=== PATIENT | female | born 1980 | race Caucasian/White ===

== ENCOUNTER 2023-06-26 10:44 | Emergency (ER) | payer OTHER, SELFPAY ==
[2023-06-26 10:46] VITALS: BP 125/81
--- NOTE | 2023-06-26 11:21 | ED.GENMED ---
History of Present Illness
General
Chief Complaint: Flank Pain
Source: patient
Exam Limitations: none
Time Seen by Provider: 06/26/23 10:56
Nursing documentation reviewed up to this point in time: agreed with
Travel History
Have you had any contact with someone who has COVID-19?: No
Do you have any symptoms of coronavirus? Fever > 100 degrees, chills, cough, shortness of breath, sore throat, loss of taste or smell, muscle aches, or headache?: No
History of Present Illness
History of Present Illness:
Patient is a 43 female who presents to the ER complaining of right flank pain which radiates to her right abdomen. Patient started with symptoms several days ago. She does have chronic back pain but this feels slightly different. She denies any
associated nausea with the. She initially reports it was worse with movement and changing positions and now she does notice it also worse with coughing sneezing she denies any shortness of breath pain is not made worse with deep breath. She is not
on control does not smoke no prior history of PE DVT. She does however feel the pain at rest. She denies any fever chills. She has not taken anything for symptoms today.
Past History
Past History
ED Past Medical History: None and Other
ED Past Surgical History: None
Social History
Tobacco: Non-smoker
Alcohol: None
Living: with family
Family History
Family History: CAD
Review of Systems
Review of Systems
Allergies reviewed?: Yes
All Other Systems: ROS reviewed and negative except as documented in HPI and ROS
Constitutional: Reports no symptoms; Denies fever, fatigue or chills
Cardiac: Reports no symptoms
ABD/GI: Reports abdominal pain; Denies nausea, vomiting or diarrhea
: Reports flank pain
Musculoskeletal: Reports back pain (pain across back but mostly right sided)
Skin: Reports no symptoms
Neurological: Reports no symptoms
Psychiatric: Reports no symptoms
Phy Exam
General Physical Exam
General Presentation: no apparent distress
General age: appears stated age
General Skin: warm and dry
General Habitus: normal
General Mental: alert
General Hydration: appears well hydrated
Gastrointestinal Exam
Gastrointestinal Exam: non tender and soft
Neurological Exam
Neurological Exam: alert and oriented x3
Musculoskeletal Exam
Musculoskeletal Exam: full ROM
Skin Exam
Skin Exam: normal color and warm/dry
Psychiatric Exam
Psychiatric Exam: normal mood/affect
Course
Orders/Labs/Results
Orders:
Orders
06/26/23 11:13
Complete Blood Count/With Diff Urgent
Comprehensive Metabolic Panel Urgent
HCG, Serum Qualitative Screen Urgent
Lipase Stat
Urinalysis Reflex To Culture Urgent
Date Specimen was Collected: 06/26/23
Time Specimen was Collected: 11:12
06/26/23 11:30
Ketorolac [Toradol] 15 mg IV NOW STA
06/26/23 11:31
CT Abd/pel Without Iv Or Oral Urgent
Comment:
Reason For Exam: right flank pain
0.9% Sodium Chloride 1000 ml [Nss] 1,000 ml IV BOLUS
06/26/23 11:36
Add On- LAB Urgent
Tests Added?: hcg qualitative
06/26/23 12:06
Add On- LAB Urgent
Tests Added?: add on hcg qualitative
06/26/23 13:20
US Abdomen Complete/Upper Urgent
Comment:
Reason For Exam: upper quad pain
Abnormal Lab Results
06/26/23
11:13
RBC 4.12 L 10^6/uL
(4.20-5.40)
MCHC 32.4 L g/dL
(33.0-37.0)
Monocytes % 10.0 H %
(1.7-9.3)
Sodium 134 L mmol/L
(135-145)
Lipase 384 H U/L
(23-300)
06/26/23 11:13
06/26/23 11:13
Vital Signs
Initial and Last Documented VS:
Initial Vital Signs
Temp Pulse Resp BP Pulse Ox
98.3 F 67 16 125/81 95
06/26/23 10:46 06/26/23 10:46 06/26/23 10:46 06/26/23 10:46 06/26/23 10:46
Last Documented Vital Signs
Temp Pulse Resp BP Pulse Ox
98.3 F 67 16 105/83 99
06/26/23 10:46 06/26/23 10:46 06/26/23 10:46 06/26/23 16:00 06/26/23 16:00
MDM/Problems Addressed
Differential Diagnosis Includes:
Not limited to muscular back pain, renal colic, biliary colic
MDM/Problems Addressed:
43-year-old female complains of right back/flank pain and right abdominal pain. Worse with movement sneezing coughing. No injury. This likely may be muscular. Patient's labs are normal CAT scan done without IV oral contrast negative for stone
there is mild to moderate diffuse colonic stool burden may reflect constipation. No DVT PE risk factors. Will check ultrasound however if negative likely muscular will DC with Tylenol Motrin. Ultrasound pending at this time care of patient
transferred to [facility]
*Radiology
Radiology exam reviewed: radiology read reviewed
*Pulse Oximetry
Patient hypoxic: no
*Critical Care Note
Total Time (30-74mins, 75-104mins- exclusive of procedures): Not Applicable
ED Attending Note
-
Portions of this chart may have been created with voice recognition software.� Occasional wrong word or��sound alike� substitutions may have occurred due to the inherent limitations of voice recognition software.
Discharge Plan
Departure
Patient Disposition: Home (Routine Discharge)
Date of Disposition: 06/26/23
Time of Disposition: 16:34
Patient with high blood pressure during this ER visit?: No
Condition: Fair
Covid-19: Not Applicable
Discharge Problem:
Back pain
Instructions: Back Pain
Prescriptions:
No Action
hydrocodone-acetaminophen 1 TABLET tablet
1 tab PO Q4HPRN PRN (Reason: pain) Qty: 20 0RF
cyclobenzaprine 10 MG tablet
10 mg PO TIDPRN PRN (Reason: muscle spasms) Qty: 12 0RF
Referrals:
Helio Fish PA [Family Provider] -
Activity Restrictions/Additional Instructions:
You may alternate between ibuprofen and Tylenol. Follow-up closely with family doctor however in the next several days for reevaluation and return if any worsening of symptoms.
Interventions
Interventions:
*ED COVID-19 Vaccine History Last Done: 06/26/23 10:46
*Nursing Disposition Last Done: 06/26/23 16:47
ZO-Giidin-Uwkwosckla Assessment Last Done: 06/26/23 11:28
ED-Female Genitourinary Assessment Last Done: 06/26/23 11:32
Discharge Date and Time
Discharge Date/Time: 06/26/23 16:47
Print Language: YORUBA
[2023-06-26 11:34] LABS: % Basophils 0.9 % (0-2); % Eosinophils 0.5 % (0-6); % Immature Granulocytes 0.2 % (0-0.5); % Lymphocytes 30.7 % (20.5-51.1); % Neutrophils 57.7 % (42.2-75.2); Absolute Basophils 0.1 10^3/uL (0-0.2); Absolute Lymphocytes 1.7 10^3/uL (1.2-3.4); Absolute Monocytes 0.6 10^3/uL (0.1-0.6); Absolute Neutrophils 3.2 10^3/uL (1.4-6.5); Hematocrit 37.6 % (37.0-47.0); Hemoglobin 12.2 g/dL (12.0-16.0); Mean Corp Hgb Conc. 32.4 g/dL (33.0-37.0); Mean Corpuscular Hgb 29.6 pg (27.0-31.0); Mean Corpuscular Volume 91.3 fL (81.0-99.0); Mean Platelet Volume 10.3 fL (7.4-10.4); Nucleated Red Blood Cells % 0 %; Platelet Count 212 10^3/uL (130-400); Red Blood Cell Count 4.12 10^6/uL (4.20-5.40); Red Cell Dist. Width 11.5 % (11.5-14.5); White Blood Cell Count 5.5 10^3/uL (4.8-10.8)
[2023-06-26 11:36] LABS: Urine Albumin Negative (Neg - Trace); Urine Bilirubin Negative (Negative); Urine Character Clear (Clear); Urine Color Yellow; Urine Glucose Negative (Negative); Urine Ketone Negative (Negative); Urine Leukocyte Negative (Negative); Urine Nitrite Negative (Negative); Urine Occult Blood Negative (Negative); Urine Specific Gravity 1.005 (<1.030); Urine Urobilinogen Negative (Neg - 1+)
[2023-06-26] MEDS: TORADOL 15 MG IV (11:36)
[2023-06-26] MEDS: NSS 1000 IV (11:39)
[2023-06-26 11:55] LABS: Lipase 384 U/L (23-300)
[2023-06-26 11:57] LABS: ALT (SGPT) 15 U/L (0-35); AST (SGOT) 24 U/L (14-36); Alkaline Phosphatase 69 U/L (38-126); Blood Urea Nitrogen 15 mg/dl (7-17); Calcium 9.1 mg/dl (8.4-10.2); Carbon Dioxide 27 mmol/L (22-30); Chloride 105 mmol/L (98-107); Glucose 87 mg/dl (70-99); Potassium 4.3 mmol/L (3.5-5.1); Sodium 134 mmol/L (135-145); Total Bilirubin 0.5 mg/dl (0.2-1.3); Total Protein 6.6 g/dl (6.3-8.2); eGFR > 60.00
[2023-06-26 12:18] LABS: HCG, Serum Qualitative Screen Negative
[2023-06-26 13:51] VITALS: BP 103/67
[2023-06-26 14:00] VITALS: BP 109/67
[2023-06-26 15:34] VITALS: BP 97/57
[2023-06-26 16:00] VITALS: BP 105/83
== END 2023-06-26 16:47 | disposition home or self-care (01) ==
LOC: EMR 10:44
PROVIDERS: Nurse Practitioner; EMERGENCY PHYSICIAN Emergency Medicine; FAMILY PHYSICIAN Nurse Practitioner Family
DX: M54.9 Dorsalgia, unspecified (principal); R10.9 Unspecified abdominal pain; G89.29 Other chronic pain; G43.909 Migraine, unspecified, not intractable, without status migrainosus
CPT/HCPCS: 99284; 96374; 96361; 74176; 76700; 80053; 81003; 83690; 84703; 85025

== ENCOUNTER → 2023-07-02 09:34 | Outpatient (REF) | payer OTHER, SELFPAY | LOC: REG 09:34 | PROVIDERS: ATTENDING PHYSICIAN Physician Assistant Medical; FAMILY PHYSICIAN Family Medicine | DX: M54.6 Pain in thoracic spine (principal) | CPT/HCPCS: 72072 ==

== ENCOUNTER → 2023-07-08 06:34 | Outpatient (REF) | payer OTHER, SELFPAY | LOC: MRI 06:34 | PROVIDERS: ATTENDING PHYSICIAN Physician Assistant Medical; FAMILY PHYSICIAN Family Medicine | DX: M54.50 Low back pain, unspecified (principal) | CPT/HCPCS: 72146 ==

== ENCOUNTER → 2024-03-30 07:32 | Outpatient (REF) | payer OTHER, SELFPAY | LOC: WDC 07:32 | PROVIDERS: ATTENDING PHYSICIAN Nurse Practitioner Adult Health | DX: Z12.31 Encounter for screening mammogram for malignant neoplasm of breast (principal) | CPT/HCPCS: 77063; 77067 ==